=== PATIENT | female | born 1995 | race African-American/Black ===

== ENCOUNTER → 2018-07-09 | Outpatient (REF) | payer SELFPAY | LOC: M LAB REF 16:57 | DX: Z34.82 Encounter for supervision of other normal pregnancy, second trimester (principal) ==

== ENCOUNTER → 2018-08-13 | Outpatient (REF) | payer MEDICAID | LOC: M LAB REF 13:14 | DX: Z34.02 Encounter for supervision of normal first pregnancy, second trimester (principal); Z3A.00 Weeks of gestation of pregnancy not specified | CPT/HCPCS: 87086 ==

== ENCOUNTER 2018-08-19 12:27 | Outpatient (CLI) | payer MEDICAID ==
[2018-08-19 13:56] LABS: APPEARANCE, URINE CLEAR (CLEAR); BACTERIA, URINE AUTO NEGATIVE (NEGATIVE); BILIRUBIN, URINE AUTO NEGATIVE (NEGATIVE); BLOOD, URINE BLOOD 2+ (NEGATIVE); COLOR, URINE YELLOW (YELLOW); GLUCOSE, URINE (UA) AUTO NEGATIVE (NEGATIVE); KETONE, URINE AUTO NEGATIVE (NEGATIVE); LEUKOCYTE ESTERASE, URINE AUTO NEGATIVE (NEGATIVE); MUCUS, URINE SMALL (NEGATIVE); NITRITE, URINE AUTO NEGATIVE (NEGATIVE); PROTEIN, URINE AUTO NEGATIVE (NEGATIVE); RBC, URINE AUTO TNTC /HPF (0-3); SPECIFIC GRAVITY URINE AUTO 1.021 (1.002-1.035); SQUAMOUS EPITHELIAL CELL UR AU 15 /HPF (0-6); WBC, URINE AUTO 0 /HPF (0-3)
== END 2018-08-19 15:49 | disposition home or self-care (01) ==
LOC: M LDO 12:27
DX: O26.853 Spotting complicating pregnancy, third trimester (principal); O99.89 Other specified diseases and conditions complicating pregnancy, childbirth and the puerperium; B37.3 Candidiasis of vulva and vagina; O23.593 Infection of other part of genital tract in pregnancy, third trimester; Z3A.27 27 weeks gestation of pregnancy
CPT/HCPCS: 59025

== ENCOUNTER → 2018-09-07 | Outpatient (CLI) | payer MEDICAID ==
[2018-09-07 12:34] LABS: HEMATOCRIT 34.4 % (36.0-47.0); HEMOGLOBIN 11.4 g/dl (12.0-15.5); MEAN CORPUSCULAR HEMOGLOBIN 29.4 pg (27.0-33.0); MEAN CORPUSCULAR HGB CONC 33.1 g/dl (32.0-36.5); MEAN CORPUSCULAR VOLUME 88.7 fl (80.0-96.0); PLATELET COUNT, AUTOMATED 348 10^3/uL (150-450); RED BLOOD COUNT 3.88 10^6/uL (4.00-5.40); RED CELL DISTRIBUTION WIDTH 12.6 % (11.5-14.5); WHITE BLOOD COUNT 7.8 10^3/uL (4.0-10.0)
[2018-09-07 13:40] LABS: GLUCOSE CHALLENGE TEST 1 HOUR 99 MG/DL (LESS THAN 140)
== END ==
LOC: M LAB 10:53
DX: Z34.02 Encounter for supervision of normal first pregnancy, second trimester (principal); Z3A.00 Weeks of gestation of pregnancy not specified
CPT/HCPCS: 82950

== ENCOUNTER → 2018-09-08 | Outpatient (REF) | payer MEDICAID | LOC: M LAB REF 17:06 | DX: Z34.02 Encounter for supervision of normal first pregnancy, second trimester (principal); Z3A.00 Weeks of gestation of pregnancy not specified | CPT/HCPCS: 87086 ==

== ENCOUNTER → 2018-10-22 | Outpatient (REF) | payer MEDICAID ==
[~2018-10-22] MED LIST: DIFL150T PO; METR-201 PO; SUDA30TA8 PO
== END ==
LOC: M LAB REF 16:24
PROVIDERS: ATTEND Obstetrics & Gynecology
DX: Z36.89 Encounter for other specified antenatal screening (principal)

== ENCOUNTER 2018-11-11 15:15 | Inpatient (IN) | payer MEDICAID, OTHER ==
[~2018-11-11] VITALS: Ht 167.6 cm; Wt 82.7 kg
[2018-11-11] VITALS (15 sets, daily range): BP systolic 101–133; BP diastolic 58–86
[2018-11-11] MEDS ORDERED: PRENTAB9 PO (15:54)
[2018-11-11] MEDS ORDERED: LR 1,000 ML IV SCH (18:15)
[2018-11-11] MEDS ORDERED: OXYTOCIN DRIP 30 UNITS in APPROPRIATE DILUENT 1 EA IV SCH ×2 (18:45→22:59)
[2018-11-11 19:36] LABS: HEMATOCRIT 37.6 % (36.0-47.0); HEMOGLOBIN 12.3 g/dl (12.0-15.5); MEAN CORPUSCULAR HEMOGLOBIN 28.7 pg (27.0-33.0); MEAN CORPUSCULAR HGB CONC 32.7 g/dl (32.0-36.5); MEAN CORPUSCULAR VOLUME 87.9 fl (80.0-96.0); PLATELET COUNT, AUTOMATED 277 10^3/uL (150-450); RED BLOOD COUNT 4.28 10^6/uL (4.00-5.40); WHITE BLOOD COUNT 10.7 10^3/uL (4.0-10.0)
[2018-11-11 19:45] LABS: AMPHETAMINES URINE REFLEX NEGATIVE (NEGATIVE); BARBITURATES URINE REFLEX NEGATIVE (NEGATIVE); BENZODIAZEPINES URINE REFLEX NEGATIVE (NEGATIVE); CANNABINOIDS URINE REFLEX NEGATIVE (NEGATIVE); COCAINE METABOLITE URINE REFLE NEGATIVE (NEGATIVE); METHADONE URINE REFLEX NEGATIVE (NEGATIVE); OPIATES URINE REFLEX NEGATIVE (NEGATIVE); PHENCYCLIDINE URINE REFLEX NEGATIVE (NEGATIVE)
[2018-11-11] MEDS ORDERED: PROMETHAZINE INJ 25 MG/ML VIAL (J2550) IV ONE (20:15)
[2018-11-11] MEDS ORDERED: BUTORPHANOL 2 MG/ML INJ (J0595) IV ONE (20:15)
[2018-11-11] MEDS ORDERED: FENTANYL 2MCG/ML ROPIVACAINE 0.2% IN 0.9% NACL 100ML IVBAG As Ordered ONE (22:03)
[2018-11-11] MEDS ORDERED: METHYLERGONOVINE MALEATE 0.2 MG TAB PO PRN (23:00)
[2018-11-11] MEDS ORDERED: ANUSOL HC CREAM 30GM TOP PRN (23:00)
[2018-11-11] MEDS ORDERED: ACETAMINOPHEN 500 MG TAB PO PRN (23:00)
[2018-11-11] MEDS ORDERED: DIBUCAINE 1% OINTMENT 30GM TOP PRN (23:00)
[2018-11-11] MEDS ORDERED: MEASLES,MUMPS,RUBELLA VACCINE INJ (MMR-II) (90707) SC SCH (23:00)
[2018-11-11] MEDS ORDERED: RHOGAM 300 MCG (1500 IU) INJ (J2790) IM SCH (23:00)
[2018-11-11] MEDS ORDERED: MOM 30ML SUSPENSION UDC PO PRN (23:00)
[2018-11-11 23:12] LABS: CORD GAS ABE A -1.4; CORD GAS ABE V -2.1; CORD GAS HCO3 A 24.4 MEQ/L; CORD GAS HCO3 V 22.1 MEQ/L; CORD GAS O2 SAT A 53.4 %; CORD GAS O2 SAT V 66.2 %; CORD GAS PCO2 A 45.2 mmHg; CORD GAS PCO2 V 36.5 mmHg; CORD GAS PH A 7.35 UNITS; CORD GAS PH V 7.4 UNITS; CORD GAS PO2 A 23.9 mmHg; CORD GAS PO2 V 26.7 mmHg; CORD GAS SBC A 22.3 MEQ/L; CORD GAS SBC V 21.9 MEQ/L; CORD GAS TCO2 A 25.8 MEQ/L; CORD GAS TCO2 V 23.2 MEQ/L
[2018-11-12 00:46] VITALS: BP 102/57
[2018-11-12] MEDS ORDERED: LIDOCAINE 1% MDV 20ML VIAL As Ordered ONE (01:42)
[2018-11-12 06:15] VITALS: BP 100/52
[2018-11-12 06:51] LABS: HEMATOCRIT 34.8 % (36.0-47.0); HEMOGLOBIN 11.5 g/dl (12.0-15.5); MEAN CORPUSCULAR HEMOGLOBIN 28.3 pg (27.0-33.0); MEAN CORPUSCULAR VOLUME 85.7 fl (80.0-96.0); PLATELET COUNT, AUTOMATED 297 10^3/uL (150-450); RED BLOOD COUNT 4.06 10^6/uL (4.00-5.40); WHITE BLOOD COUNT 18.1 10^3/uL (4.0-10.0)
[2018-11-12] MEDS: DOCUSATE SODIUM 100 MG CAP PO SCH ×2 (08:00→21:00)
[2018-11-12] MEDS: PRENATAL VITAMINS CHEWABLE TABLET PO SCH (08:00)
[2018-11-12] MEDS: IBUPROFEN 800 MG TAB PO PRN ×2 (08:06→15:23)
--- NOTE | 2018-11-12 08:48 | HPE ---
DATE OF ADMISSION: 11/11/2018 Fausto is a 23-year-old female, 1, para 0, who was admitted at 39-4/7 weeks' gestation after presenting with complaints of contractions every 3-4 minutes. Upon evaluation, she was found to be 4 cm and 90% effaced, fetus in 0 station. At this point, a decision was made for admission. Her record reviewed, which was essentially unremarkable. She initiated care at approximately 8 weeks' gestation. LABORATORY: Blood type is O+, rubella immune, hepatitis negative, HIV negative, gonorrhea culture (GC) and chlamydia negative, 1-hour sugar testing was within normal limits. Her group B streptococcus (GBS) is negative. PAST MEDICAL HISTORY: Denies. PAST SURGICAL HISTORY: Hernia repair. SOCIAL HISTORY: The patient is single. She denies any alcohol, drugs. She is a former smoker; smoked approximately half a pack of cigarettes per day. FAMILY HISTORY: Unremarkable. REVIEW OF SYSTEMS: Unremarkable. MEDICATIONS: - vitamin ALLERGIES: No known drug allergies. PHYSICAL EXAMINATION HEENT: Grossly within normal limits. Abdomen: Soft, nontender, nondistended. Extremities: No clubbing, cyanosis, or edema. Vaginal examination: 4 cm, 90%, fetus at 0 station, vertex position, with a bulging membrane. Tracing reviewed; category one tracing. Contractions every 4-5 minutes. ASSESSMENT: 1. Intrauterine at 39-4/7 weeks' gestation, in labor. 2. Group B streptococcus negative. PLAN: Admit to labor and delivery. Routine laboratories sent. Pain management discussed. The patient is unsure of pain control at this time. Will continue to monitor. Anticipate delivery.
--- NOTE | 2018-11-12 11:02 | DN ---
DATE OF DELIVERY: 11/11/2018 Fausto is a 23-year-old female 1, para 0 who was admitted at 39-4/7 weeks gestation in active labor. She progressed to fully dilated after artificial rupture of membranes and Pitocin augmentation. Delivered a live female in left occiput anterior position. Apgars 9 and 9, birthweight 6 pounds 8 ounces. Placenta delivered spontaneously intact. Three-vessel cord. Perineum, vagina and cervix inspected. A large right sulcus laceration was noted, which was repaired using #3-0 chromic. Estimated blood loss 300 mL. Both mother and baby in stable condition.
[2018-11-12 18:00] VITALS: BP 105/57
[2018-11-13] MEDS: IBUPROFEN 800 MG TAB PO PRN ×2 (00:08→10:26)
[2018-11-13 06:00] VITALS: BP 99/55
[2018-11-13] MEDS: PRENATAL VITAMINS CHEWABLE TABLET PO SCH (07:48)
[2018-11-13] MEDS: DOCUSATE SODIUM 100 MG CAP PO SCH (07:48)
[2018-11-13] MEDS ORDERED: MAPA500T2 PO (11:58)
[2018-11-13] MEDS ORDERED: IBUP-1114 PO (11:58)
== END 2018-11-13 12:30 | disposition home or self-care (01) | DRG 560 ==
LOC: M LDO 15:15 → M LDI 18:19 → M OBS 11-12 00:20
PROVIDERS: ADMIT Obstetrics & Gynecology; ATTEND Obstetrics & Gynecology
PROC: 10E0XZZ Delivery of Products of Conception, External Approach (ICD-10-PCS; principal; 2018-11-11)
PROC: 0HQ9XZZ Repair Perineum Skin, External Approach (ICD-10-PCS; 2018-11-11)
DX: O70.0 First degree perineal laceration during delivery (principal); Z37.0 Single live birth; Z3A.39 39 weeks gestation of pregnancy